=== PATIENT | male | born 1970 | race Caucasian/White ===

== ENCOUNTER 2017-01-05 22:34 | Emergency (ER) | payer OTHER, MEDICAID ==
[2017-01-05 23:01] LABS: BASOPHIL % 0.4 % (0-2); RED CELL DISTRIBUTION WIDTH 14.1 % (11.5-14.5)
[2017-01-05 23:03] LABS: PLATELET COUNT 68 x10^3mcL (130-400)
[2017-01-05 23:10] LABS: CALCIUM 8.8 mg/dL (8.5-10.1); CARBON DIOXIDE 20.4 mmol/L (21-32); CHLORIDE SERUM 92 mmol/L (98-107); CREATININE SERUM 1.3 mg/dL (0.7-1.3); GFR1 > 60 mL/min; GLUCOSE SERUM 129 mg/dL (74-106); POTASSIUM SERUM 4.1 mmol/L (3.5-5.1); SODIUM SERUM 132 mmol/L (136-145)
[2017-01-05 23:14] LABS: ALBUMIN 4.3 g/dL (3.4-5.0); ALKALINE PHOSPHATASE 94 U/L (46-116); ALT/SGPT 187 U/L (16-63); AST/SGOT 154 U/L (15-37); BILIRUBIN TOTAL 1.3 mg/dL (0.20-1.00); TOTAL PROTEIN, SERUM 7.2 g/dL (6.4-8.2)
[2017-01-06 01:50] VITALS: BP 130/79
== END 2017-01-06 02:03 | disposition home or self-care (01) ==
LOC: ED 22:34
PROVIDERS: Emergency Medicine
DX: R56.9 Unspecified convulsions (principal); Z76.0 Encounter for issue of repeat prescription; Z79.899 Other long term (current) drug therapy; Z88.2 Allergy status to sulfonamides
CPT/HCPCS: J1165; Q0092; Q0162

== ENCOUNTER 2017-01-06 04:44 | Inpatient (IN) | payer OTHER, MEDICAID ==
[~2017-01-06] VITALS: Ht 177.8 cm; Wt 57.2 kg
[2017-01-06 05:29] LABS: BASOPHIL % 0.7 % (0-2); RED CELL DISTRIBUTION WIDTH 13.9 % (11.5-14.5)
[2017-01-06 05:39] LABS: PLATELET COUNT 115 x10^3mcL (130-400)
[2017-01-06 05:50] LABS: T3 TOTAL 0.69 ng/mL
[2017-01-06 05:53] LABS: FREE T4 0.81 ng/dL (0.76-1.46)
[2017-01-06 05:54] LABS: FREE THYROXINE INDEX 1.2 ug/dL (1.4-4.5); T4(THYROXINE) 3.1 ug/dL (4.7-13.3)
[2017-01-06 06:03] LABS: ALKALINE PHOSPHATASE 85 U/L (46-116); ALT/SGPT 166 U/L (16-63); AMYLASE 65 U/L (25-115); AST/SGOT 128 U/L (15-37); BILIRUBIN TOTAL 1.32 mg/dL (0.20-1.00); CALCIUM 8.6 mg/dL (8.5-10.1); CHLORIDE SERUM 93 mmol/L (98-107); CHOLESTEROL 153 mg/dL (<200); CREATININE SERUM 1.2 mg/dL (0.7-1.3); GFR1 > 60 mL/min; GLUCOSE SERUM 128 mg/dL (74-106); LIPASE 114 IU/L (73-393); MAGNESIUM 1.8 mg/dL (1.8-2.4); PHOSPHOROUS 3.2 mg/dL (2.5-4.9); POTASSIUM SERUM 3.7 mmol/L (3.5-5.1); SODIUM SERUM 129 mmol/L (136-145); TOTAL PROTEIN, SERUM 6.7 g/dL (6.4-8.2); TRIGLYCERIDES 161 mg/dL (<150)
[2017-01-06 06:04] LABS: CHOLESTEROL/HDL RATIO 1.9; HDL CHOLESTEROL 81 mg/dL (40-60)
[2017-01-06 06:09] VITALS: BP 116/80
[2017-01-06 10:39] VITALS: BP 116/65
[2017-01-06 14:47] VITALS: BP 127/73
[2017-01-06 15:57] LABS: microscopic required? YES; urine erythrocyte TRACE (NEGATIVE)
[2017-01-06 16:14] LABS: AMPHETAMINE QUAL UR NONE DETECTED (NEG <=1000)
[2017-01-06 17:45] VITALS: BP 120/78
[2017-01-06 20:48] VITALS: Ht 177.8 cm; Wt 57.2 kg
[2017-01-06 20:49] VITALS: BP 131/77
[2017-01-07 05:20] VITALS: BP 125/70
[2017-01-07 06:20] LABS: CALCIUM 8.1 mg/dL (8.5-10.1); CARBON DIOXIDE 25.5 mmol/L (21-32); CHLORIDE SERUM 99 mmol/L (98-107); CREATININE SERUM 0.8 mg/dL (0.7-1.3); GFR1 > 60 mL/min; GLUCOSE SERUM 80 mg/dL (74-106); MAGNESIUM 1.5 mg/dL (1.8-2.4); POTASSIUM SERUM 3.7 mmol/L (3.5-5.1); SODIUM SERUM 132 mmol/L (136-145)
[2017-01-07 07:14] LABS: BASOPHIL % 0.5 % (0-2); RED CELL DISTRIBUTION WIDTH 14.2 % (11.5-14.5)
[2017-01-07 08:33] LABS: PLATELET COUNT 68 x10^3mcL (130-400)
[2017-01-07 09:47] VITALS: BP 137/91
[2017-01-07 17:29] VITALS: BP 131/79
[2017-01-07 21:06] VITALS: BP 146/89
[2017-01-08 06:32] VITALS: BP 127/84
[2017-01-08 06:32] LABS: CALCIUM 8.2 mg/dL (8.5-10.1); CARBON DIOXIDE 25.3 mmol/L (21-32); CHLORIDE SERUM 102 mmol/L (98-107); CREATININE SERUM 0.8 mg/dL (0.7-1.3); GFR1 > 60 mL/min; GLUCOSE SERUM 79 mg/dL (74-106); MAGNESIUM 1.9 mg/dL (1.8-2.4); PHOSPHOROUS 3.9 mg/dL (2.5-4.9); POTASSIUM SERUM 3.5 mmol/L (3.5-5.1); SODIUM SERUM 136 mmol/L (136-145)
[2017-01-08 06:37] LABS: BASOPHIL % 0.6 % (0-2); PLATELET COUNT 68 x10^3mcL (130-400); RED CELL DISTRIBUTION WIDTH 14.1 % (11.5-14.5)
[2017-01-08 09:28] VITALS: BP 135/76
[2017-01-08] MEDS ORDERED: NIC21 TD (09:55)
[2017-01-08] MEDS ORDERED: DIL100 PO (09:56)
[2017-01-08] MEDS ORDERED: KEP500 PO (09:56)
[2017-01-08] MEDS ORDERED: APAP/HYDROCODON1 T13 PO (09:56)
[2017-01-08] MEDS ORDERED: TRAZODONE100 MG PO (09:57)
[2017-01-08] MEDS ORDERED: BUS5 PO (09:58)
[2017-01-08] MEDS ORDERED: ATI1 PO ×2 (09:58→10:28)
[2017-01-08] MEDS ORDERED: FOL1 PO (09:59)
[2017-01-08] MEDS ORDERED: THI100 PO (10:00)
[2017-01-08] MEDS ORDERED: THERA TABS1 TAB PO (10:00)
[2017-01-08 10:35] VITALS: BP 135/76
== END 2017-01-08 11:37 | disposition home or self-care (01) | DRG 40 ==
LOC: ED 04:44 → DU 05:04 → MU 05:04 → DU 06:10 → MU 01-07 06:53
PROVIDERS: Surgery; ADMIT Family Medicine
PROC: 0HB0XZZ Excision of Scalp Skin, External Approach (ICD-10-PCS; principal; 2017-01-08 08:45)
DX: G40.909 Epilepsy, unspecified, not intractable, without status epilepticus (principal); N17.0 Acute kidney failure with tubular necrosis; E87.1 Hypo-osmolality and hyponatremia; M62.82 Rhabdomyolysis; L72.3 Sebaceous cyst; D69.59 Other secondary thrombocytopenia; E78.5 Hyperlipidemia, unspecified; E03.9 Hypothyroidism, unspecified; F41.1 Generalized anxiety disorder; F41.0 Panic disorder [episodic paroxysmal anxiety]; F12.10 Cannabis abuse, uncomplicated; F14.10 Cocaine abuse, uncomplicated; F10.20 Alcohol dependence, uncomplicated; F17.210 Nicotine dependence, cigarettes, uncomplicated; Z68.21 Body mass index [BMI] 21.0-21.9, adult; Z59.0 Homelessness; Z85.828 Personal history of other malignant neoplasm of skin; Z91.19 Patient's noncompliance with other medical treatment and regimen
CPT/HCPCS: 80307; 83880; 84439; G0480; J0690; J1885; J2060; J2250; J2270; J3010; J3475; J3490; J7030; Q0092